=== PATIENT | female | born 1960 | race Asian ===

== ENCOUNTER 2016-11-08 15:33 | Emergency (ER) | payer OTHER ==
[~2016-11-08] VITALS: Ht 165.1 cm; Wt 72.4 kg
[2016-11-08 15:38] VITALS: BP 123/80; PULSE 99; RESP 16; TEMP 98.1; O2SAT 98
[2016-11-08] MEDS ORDERED: INSU1INJ14 SQ (15:48)
[2016-11-08] MEDS ORDERED: METF500T PO (15:48)
[2016-11-08] MEDS ORDERED: VICT18IN SQ (15:48)
[2016-11-08] MEDS ORDERED: ZOLO50TA PO (15:48)
--- NOTE | 2016-11-08 16:04 | PD ---
HPI Chief Complaint: Nosebleed Time Seen by Provider: 15:53 Travel History International Travel<30 days: No Contact w/Intl Traveler<30days: No Traveled to known affect area: No History of Present Illness HPI 56-year-old female with history of diabetes, here for evaluation of intermittent nosebleeds for the last week. The patient reports bleeding from her right nostril. When this occurs she applies pressure as well as ice packs. It usually takes her about an hour to control the bleeding. She is not on any antiplatelets or anticoagulants. She denies trauma. She is here from [place] taking care of her daughter who was recently in a car accident. She reports similar episode several years ago which required cauterization. [facility] Past Medical History Depression: Yes Diabetes: Yes (type 2) Patient Takes Glucophage: Yes Diminished Hearing: No Tetanus Vaccination: < 5 Years ?: Not LMP: no menses menapause Tubal Ligation: Yes Past Surgical History Gynecologic Surgery: Yes (UTERAL ABALTION) Social History Alcohol Use: No Tobacco Use: No Substance Use: No Allergies-Medications (Allergen,Severity, Reaction): Coded Allergies: Sulfa (Verified Allergy, Severe, Swelling, 11/08/16) Reported Meds & Prescriptions Reported Meds & Active Scripts Active Reported Zoloft (Sertraline HCl) 50 Mg Tab 50 Mg PO DAILY Metformin (Metformin HCl) 500 Mg Tab 500 Mg PO DAILY With a meal Victoza Inj (Liraglutide Inj) 18 Mg/3 Ml Pen 1.8 Mg SQ DAILY Tresiba Flextouch Pen Inj (Insulin Degludec Inj) 300 unit/3 ML Pen 40 Units SQ HS Review of Systems Except as stated in HPI: all other systems reviewed are Neg Physical Exam Narrative GENERAL: Well-developed, well-nourished, comfortable, no acute distress. SKIN: Focused skin assessment warm/dry. No pallor. HEAD: Atraumatic. Normocephalic. EYES: Pupils equal and round. No scleral icterus. No injection or drainage. ENT: Dry blood in right anterior nare with large clot with no active bleeding. No blood in posterior pharynx. CARDIOVASCULAR: Regular rate and rhythm. RESPIRATORY: No accessory muscle use. Clear to auscultation. Breath sounds equal bilaterally. PSYCHIATRIC: Appropriate mood and affect; insight and judgment normal. Data Data Last Documented VS Vital Signs Date Time Temp Pulse Resp B/P Pulse Ox O2 Delivery O2 Flow Rate FiO2 11/08/16 16:28 90 18 135/81 96 11/08/16 15:38 98.1 Orders Cbc No Diff, Includes Plts (11/08/16 15:59) Prothrombin Time / Inr (Pt) (11/08/16 15:59) Act Partial Throm Time (Ptt) (11/08/16 15:59) Labs Laboratory Tests Test 11/08/16 16:02 White Blood Count 4.3 TH/MM3 Red Blood Count 3.80 MIL/MM3 Hemoglobin 10.4 GM/DL Hematocrit 31.1 % Mean Corpuscular Volume 81.9 FL Mean Corpuscular Hemoglobin 27.3 PG Mean Corpuscular Hemoglobin 33.3 % Concent Red Cell Distribution Width 13.4 % Platelet Count 227 TH/MM3 Mean Platelet Volume 6.8 FL Prothrombin Time 10.1 SEC Prothromb Time International 0.9 RATIO Ratio Activated Partial 25.9 SEC Thromboplast Time MDM Medical Decision Making Medical Screen Exam Complete: Yes Emergency Medical Condition: Yes Differential Diagnosis Epistaxis, coagulopathy, nasal polyp, anemia, thrombocytopenia Narrative Course Vital signs reviewed. CBC shows WBC 4.3, hemoglobin 10.4, hematocrit 31.1, platelets 227. INR 0.9. PTT is 25.9. The patient was made aware of all findings. She is resting comfortably. She does have dried blood in her right anterior nare with a large clot. She did not have any bleeding while in the emergency department. At this point she is stable for discharge home with outpatient follow-up with an ENT specialist this week. She was informed on when to return to the emergency department. She verbalizes understanding and agreement with plan. Diagnosis Primary Impression: Epistaxis Additional Impression: Anemia Qualified Code: D64.9 - Anemia, unspecified type Referrals: Yusuf Espino MD 3 days ENT specialist Additional Instructions: Follow-up with ENT Dr. Espino or an ENT specialist of your choice this week. Return to the emergency department for worsening symptoms or any other concerns. Disposition: 01 DISCHARGE HOME Condition: Stable Daryn Paul MD Nov 08, 2016 16:04
[2016-11-08 16:08] LABS: HEMATOCRIT 31.1 % (35.0-46.0); MEAN CELL VOLUME 81.9 FL (80.0-100.0); MEAN CORPUSCULAR HEMOGLOBIN 27.3 PG (27.0-34.0); MEAN CORPUSCULAR HGB CONC 33.3 % (32.0-36.0); PLATELET COUNT 227 TH/MM3 (150-450); RED CELL DISTRIBUTION WIDTH 13.4 % (11.6-17.2); REVIEW FLAG FINAL; WHITE BLOOD COUNT 4.3 TH/MM3 (4.0-11.0)
[2016-11-08 16:28] VITALS: BP 135/81; PULSE 90; RESP 18; O2SAT 96
[2016-11-08 16:30] LABS: APTT (PATIENT) 25.9 SEC (24.3-30.1); INTERNATIONAL NORMALIZED RATIO 0.9 RATIO; PROTHROMBIN TIME - PATIENT 10.1 SEC (9.8-11.6)
== END 2016-11-08 16:55 | disposition home or self-care (01) ==
LOC: PHED 15:33
DX: R04.0 Epistaxis (principal); D64.9 Anemia, unspecified; E11.9 Type 2 diabetes mellitus without complications
CPT/HCPCS: 85027; 85610; 85730; 99283